=== PATIENT | female | born 1955 | race Caucasian/White ===

== ENCOUNTER 2016-09-27 11:37 | Day surgery (SDC) | payer OTHER ==
[~2016-09-27] VITALS: Ht 144.8 cm; Wt 82.3 kg
[~2016-09-27 11:37] MED LIST: HYDR25TA6 PO; OMEP40CA6 PO
[2016-09-27 12:49] VITALS: Ht 144.8 cm; Wt 82.3 kg
[2016-09-27] MEDS ORDERED: ATORVASTATIN (12:54)
[2016-09-27] MEDS ORDERED: ACETAMINOPHEN (12:54)
[2016-09-27 14:07] VITALS: BP 136/77; PULSE 65; RESP 16
[2016-09-27] MEDS ORDERED: PROPOFOL 20 ML ONE (14:07)
[2016-09-27] MEDS ORDERED: LIDOCAINE 2% (SDV) 5 ML INJ ONE (14:07)
[2016-09-27 14:49] VITALS: BP 132/79; RESP 20
--- NOTE | 2016-10-05 10:10 | GILP ---
DATE OF PROCEDURE: 09/27/2016 PREOPERATIVE DIAGNOSIS: Epigastric pain, nausea, vomiting. POSTOPERATIVE DIAGNOSES: 1. Hiatus hernia. 2. Mild esophagitis. DESCRIPTION OF PROCEDURE: The patient was put in the left lateral decubitus. After obtaining infor med consent, the patient was sedated, monitored by the anesthesiologist. She was very anxious. Aft er sedation properly I proceeded to do the upper endoscopy. An Olympus video upper endoscope was ad vanced into the esophagus, stomach and duodenum. Mild distal esophagitis was noted. In the stomach there was mild gastritis. Duodenum was normal. Examination of the stomach was completely done by retroflexion, fundus, body and antrum. No ulcers were noted. Random biopsies were done. Then the scope was withdrawn. The patient had no complications. PLAN: Follow up after biopsy report and there may be other causes for her nausea and vomiting. She will be advised to have an ultrasound if necessary. Dictated By: NAT RIBEIRO Conf#: [id number] DID#: [id number] CC: Man Escobedo MD;*EndCC*
== END 2016-09-27 19:44 | disposition home or self-care (01) ==
LOC: GIL 11:37
PROVIDERS: ATTEND Internal Medicine
DX: K29.50 Unspecified chronic gastritis without bleeding (principal); K44.9 Diaphragmatic hernia without obstruction or gangrene; I10 Essential (primary) hypertension
CPT/HCPCS: 43239; 88305; 88312; Z7610